=== PATIENT | female | born 1990 | race Caucasian/White ===

== ENCOUNTER 2016-10-30 07:32 | Emergency (ER) | payer MEDICAID ==
[2016-10-30 07:40] VITALS: BP 118/69
[2016-10-30] MEDS ORDERED: IPRATROPIUM/ALBUTEROL 3 ML NEB INH STA (07:50)
--- NOTE | 2016-10-30 07:52 | ED Physician Documentation ---
PD HPI DYSPNEA - Stated complaint Stated Complaint: SOA - Chief complaint Chief Complaint: Resp - History obtained from History obtained from: Patient - History of Present Illness Timing - onset: How many weeks ago (2) Timing - onset during: Rest Timing - duration: Weeks (2) Timing - details: Gradual onset, Still present Inciting event(s): URI, Allergic rxn/anaphylaxis Improved by: Inhaler/neb Worsened by: Exertion, Coughing, Allergens Associated symptoms: Cough, Wheezing. No: Fever, Hemoptysis Similar symptoms before: Diagnosis (asthma) Recently seen: Not recently seen - Additional information Additional information: 25-year-old female with chronic persistent asthma has developed a cough and congestion and she has worsening of her shortness of air. She was on some Qvar prior to her and when she became she stopped the Qvar and she has not restarted it. She states that she does not remember a time recently where she has not had to use her inhaler. She has not had regular control of her asthma. 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 Review of Systems Constitutional: denies: Fever, Chills Ears: denies: Ear pain Nose: reports: Rhinorrhea / runny nose, Congestion Throat: denies: Sore throat Cardiac: denies: Chest pain / pressure, Palpitations Respiratory: reports: Dyspnea, Cough, Wheezing GI: denies: Nausea, Vomiting PD PAST MEDICAL HISTORY - Present Medications Home Medications: Ambulatory Orders Medication Instructions Recorded Confirmed Albuterol Sulf [Ventolin Hfa 1 - 2 puffs INH Q4HR PRN #1 inhaler 10/30/16 Inhaler] Albuterol Sulfate [Proventil Hfa 2 puffs PO Q4HR PRN 10/30/16 10/30/16 Inhaler] predniSONE [Deltasone] 10 mg PO DAILY #26 tablet 10/30/16 - Allergies Allergies/Adverse Reactions: Allergies Allergy/AdvReac Type Severity Reaction Status Date / Time No Known Drug Allergies Allergy Verified 10/30/16 07:40 PD ED PE NORMAL - Vitals Vital signs reviewed: Yes (Normal) - General General: Well developed/nourished, Other (The patient does appear to be tugging for a breath.) - HEENT HEENT: Atraumatic, PERRL, EOMI, Ears normal, Moist mucous membranes, Pharynx benign, Dentition benign - Neck Neck: Supple, no meningeal sign, No bony TTP - Cardiac Cardiac: RRR, No murmur - Respiratory Respiratory: No respiratory distress, Other (Diminished breath sounds bilaterally) - Abdomen Abdomen: Soft, Non tender - Derm Derm: Normal color, Warm and dry, No rash - Extremities Extremities: No deformity, No edema - Neuro Neuro: No motor deficit, No sensory deficit - Psych Psych: Normal mood, Normal affect Results - Vitals Vitals: Vital Signs - 24 hr 10/30/16 07:37 Temperature 36.8 C Heart Rate 94 Respiratory 18 Rate Blood Pressure 118/69 O2 Saturation 97 Oxygen O2 Source Room air PD MEDICAL DECISION MAKING - ED course Complexity details: considered differential, d/w patient ED course: 25 y/o female has chronic persistent asthma not well controlled and with exacerbation with the fall change. She is given a duo-neb treatment and we will place her on a course of prednisone and refill her albuterol. Departure - Departure Disposition: 01 Home, Self Care Clinical Impression: Asthma exacerbation Condition: Stable Instructions: ED Reactive Airway Disease Follow-Up: Your, doctor [Other] Prescriptions: Albuterol Sulf [Ventolin Hfa Inhaler] 1 - 2 puffs INH Q4HR PRN #1 inhaler PRN Reason: Shortness Of Air/Wheezing predniSONE [Deltasone] 10 mg PO DAILY #26 tablet
[2016-10-30] MEDS ORDERED: IPRATROPIUM/ALBUTEROL 3 ML NEB INH ONE (08:05)
== END 2016-10-30 08:30 | disposition home or self-care (01) ==
LOC: ED 07:32
DX: J45.51 Severe persistent asthma with (acute) exacerbation (principal)
CPT/HCPCS: 94664; 99282; 99283; J7620

== ENCOUNTER 2017-11-19 18:05 | Emergency (ER) | payer MEDICAID ==
--- NOTE | 2017-11-19 18:19 | ED Physician Documentation ---
PD HPI URI - Stated complaint Stated Complaint: DIFFICULTY BREATHING - Chief complaint Chief Complaint: Resp - History obtained from History obtained from: Patient - History of Present Illness Timing - onset: How many days ago (4-5 days of cough, feverish, and sputum of yellow/green. Has wheezing and exac of her asthma, with only mild improvement with her MDI.) Timing duration: Days Timing details: Gradual onset, Still present Associated symptoms: Fever, Chills, Productive cough. No: Nasal congestion, Sore throat Contributing factors: COPD / asthma. No: Sick contact, Travel, Immunocompromised Similar symptoms before: Diagnosis (exac of asthma and URIs.) Recently seen: Not recently seen Review of Systems Constitutional: reports: Fever (subjective), Chills, Myalgias Nose: reports: Congestion. denies: Rhinorrhea / runny nose Throat: denies: Sore throat Cardiac: reports: Chest pain / pressure (with coughing) Respiratory: reports: Dyspnea, Cough, Wheezing GI: denies: Abdominal Pain, Nausea, Vomiting, Diarrhea Skin: denies: Rash Neurologic: denies: Difficulty speaking, Altered mental status, Headache PD PAST MEDICAL HISTORY - Past Medical History Respiratory: Asthma - Present Medications Home Medications: Ambulatory Orders Medication Instructions Recorded Confirmed Albuterol Sulf [Ventolin Hfa 1 - 2 puffs INH Q4HR PRN #1 inhaler 10/30/16 Inhaler] Albuterol Sulfate [Proventil Hfa 2 puffs PO Q4HR PRN 10/30/16 10/30/16 Inhaler] predniSONE [Deltasone] 10 mg PO DAILY #26 tablet 10/30/16 Albuterol 2.5 mg INH Q4H PRN #30 neb 11/19/17 Albuterol Sulf [Ventolin Hfa 2 - 3 puffs INH Q4HR PRN #1 inhaler 11/19/17 Inhaler] Benzonatate [Tessalon] 100 mg PO TID PRN #25 capsule 11/19/17 Dexamethasone [Decadron] 4 mg PO DAILY #5 tablet 11/19/17 Doxycycline Monohydrate 100 mg PO BID #14 tablet 11/19/17 - Allergies Allergies/Adverse Reactions: Allergies Allergy/AdvReac Type Severity Reaction Status Date / Time No Known Drug Allergies Allergy Verified 10/30/16 07:40 - Social History Does the pt smoke?: No Smoking Status: Never smoker PD ED PE NORMAL - Vitals Vital signs reviewed: Yes - General General: Alert and oriented X 3, No acute distress, Well developed/nourished - HEENT HEENT: Ears normal, Moist mucous membranes, Pharynx benign - Neck Neck: Supple, no meningeal sign, No adenopathy - Cardiac Cardiac: RRR, No murmur - Respiratory Respiratory: No: Clear bilaterally (mild congested sounds left base to mid lung. Diffuse exp wheezing. ) - Abdomen Abdomen: Soft, Non tender - Derm Derm: Normal color, Warm and dry - Neuro Neuro: Alert and oriented X 3, No motor deficit, Normal speech Results - Vitals Vitals: Vital Signs - 24 hr 11/19/17 18:11 Temperature 37.5 C Heart Rate 114 H Respiratory 20 Rate Blood Pressure 134/83 H O2 Saturation 97 Oxygen O2 Source Room air PD MEDICAL DECISION MAKING - ED course Complexity details: re-evaluated patient (improved breathing and cough with neb treatment. RT will give spacer and do teaching. ), considered differential (exac of asthma, and has cough productive purulent sputum with wheezing and feverish. May be likely viral, but higher prob of bacterial with the asthma. ), d/w patient Departure - Departure Disposition: 01 Home, Self Care Clinical Impression: Upper respiratory infection Qualifiers: URI type: unspecified URI Qualified Code(s): J06.9 - Acute upper respiratory infection, unspecified Acute asthma exacerbation Qualifiers: Asthma severity: mild Asthma persistence: intermittent Qualified Code(s): J45.21 - Mild intermittent asthma with (acute) exacerbation Condition: Stable Record reviewed to determine appropriate education?: Yes Instructions: ED Upper Resp Infec Abx Tx Prescriptions: Albuterol Sulf [Ventolin Hfa Inhaler] 2 - 3 puffs INH Q4HR PRN #1 inhaler PRN Reason: Shortness Of Air/Wheezing Albuterol 2.5 mg INH Q4H PRN #30 neb PRN Reason: Wheezing Benzonatate [Tessalon] 100 mg PO TID PRN #25 capsule PRN Reason: Cough Dexamethasone [Decadron] 4 mg PO DAILY #5 tablet Doxycycline Monohydrate 100 mg PO BID #14 tablet Comments: Use your albuterol inhaler with the spacer 2-3 puffs as needed but at least 4 times a day. You could use nebulizer instead as well. Add Decadron steroid daily for 5 more days. Given your infectious symptoms, would be concern for possible bacterial cause for it and so also add the doxycycline antibiotic twice daily for a week. He had Tessalon if needed for cough. Recheck if not improving over the next several days. Discharge Date/Time: 11/19/17 19:25
[2017-11-19] MEDS ORDERED: DEXAMETHASONE 10 MG/ML VIAL PO STA (18:29)
[2017-11-19] MEDS ORDERED: IPRATROPIUM/ALBUTEROL 3 ML NEB INH STA (18:29)
[2017-11-19] MEDS ORDERED: DOXYCYCLINE 100 MG TABLET PO STA (18:29)
[2017-11-19] MEDS ORDERED: BENZONATATE 100 MG CAPSULE PO STA (18:29)
[2017-11-19 19:28] VITALS: BP 140/98
== END 2017-11-19 19:25 | disposition home or self-care (01) ==
LOC: ED 18:05
DX: J06.9 Acute upper respiratory infection, unspecified (principal); J45.21 Mild intermittent asthma with (acute) exacerbation
CPT/HCPCS: 94640; 94664; 99283; A9270

== ENCOUNTER 2018-11-08 09:00 | Emergency (ER) | payer MEDICAID ==
[2018-11-08] MEDS ORDERED: DEXAMETHASONE 10 MG/ML VIAL PO STA (10:45)
[2018-11-08] MEDS ORDERED: KETOROLAC 60 MG/2 ML VIAL IM STA (10:45)
[2018-11-08] MEDS ORDERED: IPRATROPIUM/ALBUTEROL 3 ML NEB INH STA (10:45)
[2018-11-08] MEDS ORDERED: CHERRY SYRUP 10 ML UDC PO ONE (10:45)
--- NOTE | 2018-11-08 10:48 | ED Physician Documentation ---
PD HPI CHEST PAIN - Stated complaint Stated Complaint: med rx - Chief complaint Chief Complaint: Allergic Rx - History obtained from History obtained from: Patient - History of Present Illness Timing - onset: How many days ago (2) Timing - onset during: Rest Timing - duration: Hours Timing - details: Gradual onset, Still present Quality: Pressure, Tightness Location: Substernal Radiation: Jaw Improved by: Rest Worsened by: Inspiration, Palpation Associated symptoms: Shortness of air Similar symptoms before: Has not had sx before Recently seen: Clinic - Additional information Additional information: 27-year-old female with a history of asthma has developed acute chest pain while she was sitting at a restaurant 2 days ago and she noticed some pain to her jaw as well. She went into see her primary care doctor yesterday was diagnosed with a panic attack and placed on propranolol and S-Citalopram. Patient states that she took a dose of the propranolol last night and felt that this made her asthma significantly worse. She was able to get to sleep she comes in this morning wi th persistence of this chest pain and shortness of breath. She does use a Pulmicort inhaler on a regular basis and she has had to use her inhaler multiple times during the day over the past month as there is construction going on in her apartment building. She is not coughing up phlegm. Review of Systems Constitutional: denies: Fever, Chills, Myalgias Eyes: denies: Decreased vision Ears: denies: Ear pain Nose: denies: Rhinorrhea / runny nose, Reviewed and negative Throat: denies: Sore throat Cardiac: reports: Chest pain / pressure. denies: Palpitations, Pedal edema, Calf pain Respiratory: reports: Dyspnea, Wheezing. denies: Cough GI: denies: Abdominal Pain, Nausea, Vomiting : denies: Dysuria, Frequency PD PAST MEDICAL HISTORY - Past Medical History Respiratory: Asthma - Present Medications Home Medications: Ambulatory Orders Medication Instructions Recorded Confirmed Albuterol Sulf [Ventolin Hfa 1 - 2 puffs INH Q4HR PRN #1 inhaler 10/30/16 Inhaler] Albuterol Sulfate [Proventil Hfa 2 puffs PO Q4HR PRN 10/30/16 10/30/16 Inhaler] predniSONE [Deltasone] 10 mg PO DAILY #26 tablet 10/30/16 Albuterol 2.5 mg INH Q4H PRN #30 neb 11/19/17 Albuterol Sulf [Ventolin Hfa 2 - 3 puffs INH Q4HR PRN #1 inhaler 11/19/17 Inhaler] Benzonatate [Tessalon] 100 mg PO TID PRN #25 capsule 11/19/17 Doxycycline Monohydrate 100 mg PO BID #14 tablet 11/19/17 dexAMETHasone [Decadron] 4 mg PO DAILY #5 tablet 11/19/17 predniSONE [Deltasone] 10 mg PO ONCE #26 tablet 11/08/18 - Allergies Allergies/Adverse Reactions: Allergies Allergy/AdvReac Type Severity Reaction Status Date / Time No Known Drug Allergies Allergy Verified 11/08/18 09:16 - Social History Does the pt smoke?: No Smoking Status: Never smoker Substance Use and Type: Marijuana PD ED PE NORMAL - Vitals Vital signs reviewed: Yes (hypertensive ) - General General: Alert and oriented X 3, No acute distress, Well developed/nourished - HEENT HEENT: Atraumatic, PERRL, EOMI, Ears normal, Moist mucous membranes, Pharynx benign, Dentition benign - Neck Neck: Supple, no meningeal sign, No bony TTP - Cardiac Cardiac: RRR, No murmur - Respiratory Respiratory: No respiratory distress, Other (fine wheezes in the bases bilaterally ) - Abdomen Abdomen: Soft, Non tender - Back Back: No CVA TTP, No spinal TTP - Derm Derm: Normal color, Warm and dry, No rash - Extremities Extremities: No deformity, No edema - Neuro Neuro: Alert and oriented X 3, statistical engineer 2-12 intact, No motor deficit, No sensory deficit, Normal speech Eye Opening: Spontaneous Motor: Obeys Commands Verbal: Oriented GCS Score: 15 - Psych Psych: Normal mood, Normal affect Results - Vitals Vitals: Vital Signs - 24 hr 11/08/18 11/08/18 09:16 11:07 Temperature 36.8 C Heart Rate 75 60 Respiratory 15 17 Rate Blood Pressure 125/85 H O2 Saturation 97 Oxygen O2 Source Room air - EKG (time done) 1115 Rate: Rate (enter#) (60) Rhythm: NSR Compare to prior EKG: Old EKG unavailable Computer interpretation: Agree with computer - Labs Labs: Laboratory Tests 11/08/18 11/08/18 11/08/18 11:01 11:01 11:01 WBC 8.9 RBC 4.92 Hgb 15.2 Hct 45.5 MCV 92.5 MCH 30.9 MCHC 33.4 RDW 12.8 Plt Count 341 MPV 8.9 Neut # (Auto) 4.2 Lymph # (Auto) 3.7 H [place] # (Auto) 0.4 Eos # (Auto) 0.6 Baso # (Auto) 0.1 Absolute Nucleated RBC 0.00 Nucleated RBC % 0.0 Sodium 139 Potassium 4.1 Chloride 104 Carbon Dioxide 27 Anion Gap 8.0 BUN 11 Creatinine 0.7 Estimated GFR (MDRD) 100 Glucose 93 Calcium 9.2 Total Bilirubin 0.5 AST 20 ALT 21 Alkaline Phosphatase 80 Troponin I High Sens 2.7 Total Protein 7.1 Albumin 4.1 Globulin 3.0 Albumin/Globulin Ratio 1.4 Lipase 36 - Rads (name of study) chest Radiology: Prelim report reviewed (Impression: Normal two-view chest radi ography.), EMP read indepedently, See rad report PD MEDICAL DECISION MAKING - ED course Complexity details: reviewed results, re-evaluated patient, considered differential, d/w patient ED course: 27-year-old female with a history of asthma has developed chest pain and the chest pain appears to be related to her asthma. She has pain now along the costal margin especially if she takes a deep breath. She is administered Dexamethasone 10 mg orally she is given a DuoNeb treatment with some improvement in her breathing and she is having some issues with environmental allergens at home. We will place her on a course of prednisone I have encouraged her to use her albuterol inhaler before her Pulmicort and to use her Pulmicort regularly. Departure - Departure Disposition: 01 Home, Self Care Clinical Impression: Acute asthma exacerbation Qualifiers: Asthma severity: moderate Asthma persistence: persistent Qualified Code(s): J45.41 - Moderate persistent asthma with (acute) exacerbation Condition: Stable Instructions: ED Reactive Airway Disease Follow-Up: Your, doctor [Other] Prescriptions: predniSONE [Deltasone] 10 mg PO ONCE #26 tablet
[2018-11-08 11:17] LABS: BASOPHILS # (AUTO) 0.1 10^3/uL (0.0-0.1); BASOPHILS % (AUTO) 0.6 %; EOSINOPHILS # (AUTO) 0.6 10^3/uL (0.0-0.7); EOSINOPHILS % (AUTO) 6.5 %; HGB - HEMOGLOBIN 15.2 g/dL (12.0-16.0); LYMPHOCYTES # (AUTO) 3.7 10^3/uL (1.5-3.5); LYMPHOCYTES % (AUTO) 41.6 %; MEAN CORPUSCULAR HEMOGLOBIN 30.9 pg (27.0-31.0); MEAN CORPUSCULAR HGB CONC 33.4 g/dL (32.0-36.0); MEAN CORPUSCULAR VOLUME 92.5 fL (81.0-99.0); MEAN PLATELET VOLUME 8.9 fL (7.9-10.8); MONOCYTES # (AUTO) 0.4 10^3/uL (0.0-1.0); MONOCYTES % (AUTO) 4.3 %; NEUTROPHILS # (AUTO) 4.2 10^3/uL (1.5-6.6); NEUTROPHILS % (AUTO) 46.8 %; PLT - PLATELET COUNT 341 10^3/uL (130-450); RED BLOOD COUNT 4.92 10^6/uL (4.20-5.40); RED CELL DISTRIBUTION WIDTH 12.8 % (12.0-15.0); WHITE BLOOD COUNT 8.9 x10^3/uL (4.8-10.8)
[2018-11-08 11:31] LABS: ALBUMIN 4.1 g/dL (3.2-5.5); ALBUMIN/GLOBULIN RATIO 1.4 (1.0-2.2); BILIRUBIN,TOTAL 0.5 mg/dL (0.2-1.0); CALCIUM 9.2 mg/dL (8.5-10.3); CREATININE 0.7 mg/dL (0.4-1.0); TOTAL PROTEIN 7.1 g/dL (6.7-8.2)
--- NOTE | 2018-11-08 11:35 | XRAY Report ---
Reason: chest pain soa Procedure Date: 11/08/2018 Accession Number: [id number] / [id number] Procedure: XR - Chest 2 View X-Ray CPT Code: 15932 FULL RESULT: EXAM: CHEST RADIOGRAPHY EXAM DATE: 11/08/2018 11:10 AM. CLINICAL HISTORY: Chest pain, shoulder pain, shortness of breath. COMPARISON: None. TECHNIQUE: 2 views. FINDINGS: Lungs/Pleura: No focal opacities evident. No peribronchial cuffing or interstitial abnormality. No pleural effusion. No pneumothorax. Normal volumes. Mediastinum: Heart and mediastinal contours are unremarkable. Other: None. IMPRESSION: Normal 2-view chest radiography. [facility]
[2018-11-08 12:26] VITALS: BP 130/82
== END 2018-11-08 12:27 | disposition home or self-care (01) ==
LOC: ED 09:00
DX: J45.41 Moderate persistent asthma with (acute) exacerbation (principal)
CPT/HCPCS: 36415; 71046; 80053; 83690; 84484; 85025; 93005; 94640; 96372; 99284; A9270